=== PATIENT | female | born 1980 | race Caucasian/White ===

== ENCOUNTER 2018-04-25 07:40 | Emergency (ER) | payer SELFPAY ==
--- NOTE | 2018-04-25 08:26 | ER ---
Nurse's Notes [facility] Name: Jade Garcia Age: 37 yrs Sex: Female : 1980 Arrival Date: 04/25/2018 Time: 07:44 Bed 18 Private MD: None, None Diagnosis: Acute pain, not elsewhere classified-right oblique muscle tear;Essential (primary) hypertension Presentation: 04/25 07:57 Presenting complaint: Patient states: from my right hip bone down to my vaginal it tw2 hurts, feels like something is pulling inside there, and these red dotes showed up last night but i have been coughing, i can hardly take a deep breathe. Transition of care: patient was not received from another setting of care. Onset of symptoms was April 25, 2018. Risk Assessment: Do you want to hurt yourself or someone else? Patient reports no desire to harm self or others. Initial Sepsis Screen: Does the patient meet any 2 criteria? No. Patient's initial sepsis screen is negative. Does the patient have a suspected source of infection? No. Patient's initial sepsis screen is negative. Care prior to arrival: None. 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 - Social history:: Smoking status: . - Ebola Screening: : Patient denies travel to an Ebola-affected area in the 21 days before illness onset. - Family history:: not pertinent. Screenin:23 Abuse screen: Denies threats or abuse. Nutritional screening: No deficits noted. tw2 Tuberculosis screening: No symptoms or risk factors identified. Fall Risk None identified. Assessment: 08:24 General: Appears in no apparent distress. Behavior is calm, cooperative, appropriate tw2 for age. Pain: Complains of pain in right lower quadrant and anterior aspect of right lateral abdomen. Neuro: Level of Consciousness is awake, alert, obeys commands, Oriented to person, place, time, situation. Cardiovascular: Heart tones S1 S2 Patient's skin is warm and dry. Respiratory: Airway is patent Respiratory effort is even, unlabored, Respiratory pattern is regular, symmetrical, Breath sounds are clear bilaterally. GI: Bowel sounds present X 4 quads. Abd is soft X 4 quads Abdomen is tender to palpation in right lower quadrant. : No signs and/or symptoms were reported regarding the genitourinary system. Denies burning with urination, urinary frequency. EENT: No signs and/or symptoms were reported regarding the EENT system. Derm: petechia noted to right lower abdomen. Musculoskeletal: Reports pain in right lower quadrant and anterior aspect of right lateral abdomen. 08:32 Reassessment: Patient appears in no apparent distress at this time. No changes from tw2 previously documented assessment. Patient and/or family updated on plan of care and expected duration. Pain level reassessed. Patient is alert, oriented x 3, equal unlabored respirations, skin warm/dry/pink. Vital Signs: 07:58 BP 158 / 133; Pulse 114; Resp 18; Temp 98.3(O); Pulse Ox 99% on R/A; Pain 10/10; tw2 08:20 BP 146 / 99; Pulse 90; Resp 18; Pulse Ox 99% on R/A; tw2 ED Course: 07:44 Patient arrived in ED. mr 07:44 None, None is Private Physician. mr 07:53 Bed in low position. Call light in reach. tw2 07:55 Tarun Ortiz MD is Attending Physician. [facility] 07:57 Maria C Tolbert, URI is Primary Nurse. tw2 07:58 Triage completed. tw2 08:25 Arm band placed on. tw2 08:25 No provider procedures requiring assistance completed. tw2 08:32 Patient did not have IV access during this emergency room visit. tw2 Administered Medications: 08:23 Drug: Lisinopril 20 mg Route: PO; tw2 08:31 Follow up: Response: No adverse reaction tw2 08:23 Drug: Motrin 400 mg Route: PO; tw2 08:31 Follow up: Response: No adverse reaction tw2 Outcome: 08:25 Discharge ordered by . lo 08:31 Discharged to home ambulatory. tw2 08:31 Condition: stable 08:31 Discharge instructions given to patient, Instructed on discharge instructions, follow up and referral plans. no drinking with medication, no driving heavy equipment, medication usage, Demonstrated understanding of instructions, follow-up care, medications, Prescriptions given X 3. 08:32 Patient left the ED. tw2 Signatures: Tarun Ortiz MD MD cha Rivera, Lisa Moise RN RN iw Maria C Tolbert RN RN tw2 Corrections: (The following items were deleted from the chart) 08:23 08:20 BP 148 / 99; iw tw 08:26 08:20 BP 146 / 99; tw2 tw2
--- NOTE | 2018-04-25 08:26 | EDPHYS ---
Physician Documentation [facility] Name: Jade Garcia Age: 37 yrs Sex: Female : 1980 Arrival Date: 04/25/2018 Time: 07:44 Bed 18 Private MD: None, None ED Physician Tarun Ortiz HPI: 04/25 08:18 This 37 yrs old Female presents to ER via Ambulatory with complaints of lo Abdominal Pain, Pelvic Pain. 08:18 The patient presents with abdominal pain in the lower abdomen. Onset: The lo symptoms/episode began/occurred 2 day(s) ago. The patient complains of pain in the right low back. The pain does not radiate. Onset: The symptoms/episode began/occurred 2 day(s) ago. The patient presents with pain that is acute, coughing. 08:18 Modifying factors: The symptoms are alleviated by remaining still, the symptoms are lo aggravated by movement, palpation/percussion. The symptoms are located in the right superior iliac crest. Onset: The symptoms/episode began/occurred 2 day(s) ago. 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 - Social history:: Smoking status: . - Ebola Screening: : Patient denies travel to an Ebola-affected area in the 21 days before illness onset. - Family history:: not pertinent. ROS: 08:18 Constitutional: Negative for fever, chills, and weight loss, Eyes: Negative for injury, lo pain, redness, and discharge, ENT: Negative for injury, pain, and discharge, Neck: Negative for injury, pain, and swelling, Cardiovascular: Negative for chest pain, palpitations, and edema, Respiratory: Negative for shortness of breath, cough, wheezing, and pleuritic chest pain, Back: Negative for injury and pain, : Negative for injury, bleeding, discharge, and swelling, MS/Extremity: Negative for injury and deformity, Skin: Negative for injury, rash, and discoloration, Neuro: Negative for headache, weakness, numbness, tingling, and seizure, Psych: Negative for depression, anxiety, suicide ideation, homicidal ideation, and hallucinations, Allergy/Immunology: Negative for hives, rash, and allergies, Endocrine: Negative for neck swelling, polydipsia, polyuria, polyphagia, and marked weight changes, Hematologic/Lymphatic: Negative for swollen nodes, abnormal bleeding, and unusual bruising. 08:18 Abdomen/GI: Positive for abdominal pain, of the anterior aspect of right lateral abdomen and right lower quadrant. Exam: 08:18 Constitutional: This is a well developed, well nourished patient who is awake, alert, lo and in no acute distress. Head/Face: Normocephalic, atraumatic. Eyes: Pupils equal round and reactive to light, extra-ocular motions intact. Lids and lashes normal. Conjunctiva and sclera are non-icteric and not injected. Cornea within normal limits. Periorbital areas with no swelling, redness, or edema. ENT: Nares patent. No nasal discharge, no septal abnormalities noted. Tympanic membranes are normal and external auditory canals are clear. Oropharynx with no redness, swelling, or masses, exudates, or evidence of obstruction, uvula midline. Mucous membranes moist. Neck: Trachea midline, no thyromegaly or masses palpated, and no cervical lymphadenopathy. Supple, full range of motion without nuchal rigidity, or vertebral point tenderness. No Meningismus. Chest/axilla: Normal chest wall appearance and motion. Nontender with no deformity. No lesions are appreciated. Cardiovascular: Regular rate and rhythm with a normal S1 and S2. No gallops, murmurs, or rubs. Normal PMI, no JVD. No pulse deficits. Respiratory: Lungs have equal breath sounds bilaterally, clear to auscultation and percussion. No rales, rhonchi or wheezes noted. No increased work of breathing, no retractions or nasal flaring. Back: No spinal tenderness. No costovertebral tenderness. Full range of motion. Skin: Warm, dry with normal turgor. Normal color with no rashes, no lesions, and no evidence of cellulitis. MS/ Extremity: Pulses equal, no cyanosis. Neurovascular intact. Full, normal range of motion. Neuro: Awake and alert, GCS 15, oriented to person, place, time, and situation. Cranial nerves II-XII grossly intact. Motor strength 5/5 in all extremities. Sensory grossly intact. Cerebellar exam normal. Normal gait. Psych: Awake, alert, with orientation to person, place and time. Behavior, mood, and affect are within normal limits. 08:18 Abdomen/GI: Inspection: abdomen appears normal, Bowel sounds: normal, Palpation: abdomen is soft and non-tender, Liver: no appreciated palpable abnormalities, Hernia: not appreciated. Vital Signs: 07:58 BP 158 / 133; Pulse 114; Resp 18; Temp 98.3(O); Pulse Ox 99% on R/A; Pain 10/10; tw2 08:20 BP 146 / 99; Pulse 90; Resp 18; Pulse Ox 99% on R/A; tw2 MDM: 07:55 Patient medically screened. lo 12 08:10 Order name: Urine Dipstick--Ancillary (enter results) bd 04/25 08:10 Order name: Urine --Ancillary (enter results) bd Administered Medications: 08:23 Drug: Lisinopril 20 mg Route: PO; tw2 08:31 Follow up: Response: No adverse reaction tw2 08:23 Drug: Motrin 400 mg Route: PO; tw2 08:31 Follow up: Response: No adverse reaction tw2 Disposition: 04/25/18 08:25 Discharged to Home. Impression: Acute pain, not elsewhere classified - right oblique muscle tear, Essential (primary) hypertension. - Condition is Stable. - Discharge Instructions: Hypertension, Muscle Strain, Muscle Pain, Adult, Hypertension, [id number], Cough, Adult, [id number], Muscle Strain, [id number], Cough, Adult. - Prescriptions for gabapentin 300 mg Oral capsule - take 2 capsule by ORAL route 3 times per day; 60 capsule. Tylenol- Codeine #3 300-30 mg Oral Tablet - take 2 tablet by ORAL route every 6 hours As needed; 30 tablet. Lisinopril 20 mg Oral Tablet - take 1 tablet by ORAL route once daily; 20 tablet. - Medication Reconciliation Form, Thank You Letter, Antibiotic Education, Prescription Opioid Use form. - Follow up: Private Physician; When: 2 - 3 days; Reason: Recheck today's complaints, Continuance of care, Re-evaluation by your physician. - Problem is new. - Symptoms have improved. Signatures: Dispatcher [employer] EDTarun Cerda MD MD cha Wise, Tara RN RN tw2 Corrections: (The following items were deleted from the chart) 08:32 08:25 04/25/2018 08:25 Discharged to Home. Impression: Acute pain, not elsewhere tw2 classified - right oblique muscle tear; Essential (primary) hypertension. Condition is Stable. Forms are Medication Reconciliation Form, Thank You Letter, Antibiotic Education, Prescription Opioid Use. Follow up: Private Physician; When: 2 - 3 days; Reason: Recheck today's complaints, Continuance of care, Re-evaluation by your physician. Problem is new. Symptoms have improved. lo
[2018-04-25] MEDS ORDERED: LISINOPRIL 20 MG TAB ONE (08:29)
[2018-04-25] MEDS ORDERED: IBUPROFEN 400 MG TAB ONE (08:29)
[2018-04-25 08:44] VITALS: TEMP 98.3; O2SAT 99
[2018-04-25 08:46] VITALS: BP 146/99
[2018-04-25 08:46] LABS: Urine Blood TRACE (NEG); Urine Glucose NEGATIVE (NEG); Urine Protein NEGATIVE (NEG)
== END 2018-04-25 08:32 | disposition home or self-care (01) ==
LOC: ER 07:40
DX: S39.011A Strain of muscle, fascia and tendon of abdomen, initial encounter (principal); I10 Essential (primary) hypertension; F20.9 Schizophrenia, unspecified; Z88.3 Allergy status to other anti-infective agents
CPT/HCPCS: 81003; 81025; 99283

== ENCOUNTER 2018-05-03 08:07 | Emergency (ER) | payer SELFPAY ==
[2018-05-03] MEDS ORDERED: IPRATROPIUM BROM 0.5MG/2.5ML ONE (08:48)
[2018-05-03] MEDS ORDERED: ALBUTEROL 2.5 MG/3 ML NEB SOL ONE (08:48)
[2018-05-03 09:00] LABS: Absolute Lymphocytes (CBC) 1.6 K/uL (0.7-4.9); Absolute Monocytes 0.7 K/uL (0.1-1.3); Basophils % 0.7 % (0-1.3); Eosinophils % 2.6 % (0-4.4); Hematocrit 39.8 % (36.0-45.0); Lymphocytes % 12.7 % (15.3-44.8); MCH 31.3 pg (27.0-35.0); MPV 8.8 fL (7.6-11.3); Monocytes % 5.3 % (3.3-12.3); RBC Red Blood Cell Count 4.33 M/uL (3.86-4.86)
[2018-05-03 09:16] LABS: Potassium 3.8 mmol/L (3.5-5.1)
[2018-05-03 09:48] LABS: Urine Blood NEGATIVE (NEG); Urine Glucose NEGATIVE (NEG); Urine Protein NEGATIVE (NEG); Urine pH 7.5 (5.0-7.0)
--- NOTE | 2018-05-03 10:02 | RAD REPORT ---
EXAM DESCRIPTION: CT - Abdomen Pelvis W Contrast - 05/03/2018 9:38 am CLINICAL HISTORY: Abdominal pain with vomiting COMPARISON: October 2016 TECHNIQUE: Computed axial tomography of the abdomen pelvis was obtained. 100 cc Isovue-300 was admin istered intravenously. Oral contrast was not requested which limits evaluation of bowel. All CT scans are performed using dose optimization technique as appropriate and may include automated exposure control or mA/KV adjustment according to patient size. FINDINGS: Small left pleural effusion An 8 x 4 centimeter heterogeneous structure is present within the musculature of the right lateral ab dominal wall above the level of the iliac crest. Stranding is present within the adjacent subcutaneou s tissues. The liver, spleen, pancreas, adrenal and kidneys appear unremarkable. 1 centimeter left renal cyst There is no evidence of diverticulitis. The appendix is normal. IMPRESSION: 8 x 4 centimeter heterogeneous structure within the musculature of the right lateral wa ll above the level of the iliac crest probably represents a subacute hematoma. Myositis can also have this appearance and should be correlated clinically. .
--- NOTE | 2018-05-03 10:12 | EDPHYS ---
Physician Documentation [facility] Name: Jade Garcia Age: 37 yrs Sex: Female : 1980 Arrival Date: 05/03/2018 Time: 08:10 Bed 23 Private MD: None, None ED Physician Yoav Ivan HPI: 05/03 09:43 This 37 yrs old Female presents to ER via Ambulatory with complaints of kb Abdominal Pain. 09:43 The patient presents with abdominal pain in the lower abdomen. Onset: The kb symptoms/episode began/occurred last month, and became worse. The symptoms do not radiate. Associated signs and symptoms: none. The symptoms are described as constant. Modifying factors: The symptoms are alleviated by nothing, the symptoms are aggravated by pressure. Severity of pain: At its worst the pain was moderate in the emergency department the pain is unchanged. The patient has experienced a previous episode, last month. The patient has been recently seen at the [facility] Emergency Department, last month. 09:45 Pt reports she was seen for same pain last month and was diagnosed with a muscle tear, kb but the pain has gotten worse. Had bruising to right lateral abd last since last month, almost resolved. Now has bruising around umbilicus. 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 - Social history:: Smoking status: Patient uses tobacco products, denies chronic smoking, but will smoke occasionally. - Ebola Screening: : No symptoms or risks identified at this time. ROS: 09:43 Constitutional: Negative for fever, chills, and weight loss, ENT: Negative for injury, kb pain, and discharge, Neck: Negative for injury, pain, and swelling, Cardiovascular: Negative for chest pain, palpitations, and edema, Respiratory: Negative for shortness of breath, cough, wheezing, and pleuritic chest pain, Back: Negative for injury and pain, : Negative for injury, bleeding, discharge, and swelling, MS/Extremity: Negative for injury and deformity, Neuro: Negative for headache, weakness, numbness, tingling, and seizure. 09:43 Abdomen/GI: Positive for abdominal pain. 09:43 Skin: Positive for ecchymosis, of the umbilical area and anterior aspect of right lateral abdomen. Exam: 09:43 Constitutional: This is a well developed, well nourished patient who is awake, alert, kb and in no acute distress. Head/Face: Normocephalic, atraumatic. Chest/axilla: Normal chest wall appearance and motion. Nontender with no deformity. No lesions are appreciated. Cardiovascular: Regular rate and rhythm with a normal S1 and S2. No gallops, murmurs, or rubs. Normal PMI, no JVD. No pulse deficits. Respiratory: Lungs have equal breath sounds bilaterally, clear to auscultation and percussion. No rales, rhonchi or wheezes noted. No increased work of breathing, no retractions or nasal flaring. Back: No spinal tenderness. No costovertebral tenderness. Full range of motion. Skin: Warm, dry with normal turgor. Normal color with no rashes, no lesions, and no evidence of cellulitis. MS/ Extremity: Pulses equal, no cyanosis. Neurovascular intact. Full, normal range of motion. Neuro: Awake and alert, GCS 15, oriented to person, place, time, and situation. Cranial nerves II-XII grossly intact. Motor strength 5/5 in all extremities. Sensory grossly intact. Cerebellar exam normal. Normal gait. 09:43 Abdomen/GI: Inspection: bruising, umbilical area and anterior aspect of right lateral abdomen, Bowel sounds: normal, Palpation: soft, in all quadrants, mild abdominal tenderness, in the right lower quadrant and left lower quadrant. Vital Signs: 08:27 BP 146 / 97; Pulse 90; Resp 18; Temp 97.3; Pulse Ox 98% on R/A; Weight 74.84 kg; Height ph 5 ft. 3 in. (160.02 cm); Pain 10/10; 09:25 BP 149 / 92; Pulse 88; Resp 18; Pulse Ox 96% on R/A; rb1 09:35 rb1 10:16 BP 138 / 81; Pulse 84; Resp 17; Pulse Ox 96% on R/A; rb1 08:27 Body Mass Index 29.23 (74.84 kg, 160.02 cm) ph 09:[address] rb1 MDM: 08:18 Patient medically screened. kb 09:45 Data reviewed: vital signs, nurses notes. Data interpreted: Pulse oximetry: on room air kb is 98 %. Interpretation: normal. 10:10 Counseling: I had a detailed discussion with the patient and/or guardian regarding: the kb historical points, exam findings, and any diagnostic results supporting the discharge/admit diagnosis, lab results, radiology results, the need for outpatient follow up, a family practitioner, to return to the emergency department if symptoms worsen or persist or if there are any questions or concerns that arise at home. ED course: History compatible with subacute hematoma. . 05/03 08:29 Order name: CBC with Diff; Complete Time: 09:02 kb 05/03 08:29 Order name: Basic Metabolic Panel; Complete Time: 09:17 kb 05/03 09:18 Order name: CT Abd/Pelvis - W/Contrast; Complete Time: 10:04 kb 05/03 09:37 Order name: Urine Dipstick--Ancillary (enter results); Complete Time: 09:49 eb 05/03 09:37 Order name: Urine --Ancillary (enter results); Complete Time: 09:49 eb 05/03 08:29 Order name: IV Saline Lock; Complete Time: 09:28 kb 05/03 08:29 Order name: Labs collected and sent; Complete Time: 09:28 kb 05/03 09:18 Order name: Urine Test (obtain specimen); Complete Time: 09:35 kb 05/03 09:18 Order name: Urine Dipstick-Ancillary (obtain specimen); Complete Time: 09:36 kb Administered Medications: 08:43 Drug: DuoNeb (3:1) (2.5 mg - 0.5 mg) 3 ml Route: Nebulizer; rb1 09:10 Follow up: Response: No adverse reaction; Marked relief of symptoms rb1 10:15 Drug: Doxycycline 100 mg Route: PO; rb1 10:24 Follow up: Response: Medication administered at discharge. rb1 Disposition: 10:27 Co-signature as Attending Physician, Yoav Ivan MD. rn Disposition: 05/03/18 10:12 Discharged to Home. Impression: Subacute hematoma of abdominal wall. - Condition is Stable. - Discharge Instructions: Hematoma, [id number]. - Prescriptions for Doxycycline Hyclate 100 mg Oral Tablet - take 1 tablet by ORAL route every 12 hours for 7 days; 14 tablet. Tramadol 50 mg Oral Tablet - take 1 tablet by ORAL route every 8 hours as needed; 12 tablet. - Medication Reconciliation Form, Thank You Letter, Antibiotic Education, Prescription Opioid Use form. - Follow up: Emergency Department; When: As needed; Reason: Worsening of condition. Follow up: Private Physician; When: 2 - 3 days; Reason: Recheck today's complaints, Continuance of care, Re-evaluation by your physician. Signatures: Dispatcher [employer] EDMS Paula Hale, ROUNDING MACHINE OPERATOR-C ROUNDING MACHINE OPERATOR-Yoav Kay MD MD rn Mellisa Mcdowell RN RN Kathryn Rabago RN RN rb1 Corrections: (The following items were deleted from the chart) 10:22 10:12 05/03/2018 10:12 Discharged to Home. Impression: Subacute hematoma of abdominal rb1 wall. Condition is Stable. Forms are Medication Reconciliation Form, Thank You Letter, Antibiotic Education, Prescription Opioid Use. Follow up: Emergency Department; When: As needed; Reason: Worsening of condition. Follow up: Private Physician; When: 2 - 3 days; Reason: Recheck today's complaints, Continuance of care, Re-evaluation by your physician. kb
--- NOTE | 2018-05-03 10:12 | ER ---
Nurse's Notes [facility] Name: Jade Garcia Age: 37 yrs Sex: Female : 1980 Arrival Date: 05/03/2018 Time: 08:10 Bed 23 Private MD: None, None Diagnosis: Subacute hematoma of abdominal wall Presentation: 05/03 08:24 Presenting complaint: Patient states: " I had bronchitis about a week ago and I started ph having stomach pain and thought that it was a pulled muscle or something but the p[pain has gotten worse and now it's moved to anther area of my stomach." Pt reports pain in RLQ and umbilical area, bruising noted to umbilical area, pt also reports nausea, denies V/D or fever. Transition of care: patient was not received from another setting of care. Onset of symptoms was May 03, 2018. Risk Assessment: Do you want to hurt yourself or someone else? Patient reports no desire to harm self or others. Initial Sepsis Screen: Does the patient meet any 2 criteria? No. Patient's initial sepsis screen is negative. Does the patient have a suspected source of infection? No. Patient's initial sepsis screen is negative. Care prior to arrival: None. 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 - Social history:: Smoking status: Patient uses tobacco products, denies chronic smoking, but will smoke occasionally. - Ebola Screening: : No symptoms or risks identified at this time. Screenin:28 Abuse screen: Denies threats or abuse. Denies injuries from another. Nutritional ph screening: No deficits noted. Tuberculosis screening: No symptoms or risk factors identified. Fall Risk None identified. Assessment: 08:25 General: Appears uncomfortable, Behavior is calm, cooperative, Denies fever. Pain: rb1 Complains of pain in right lower quadrant and umbilical Pain currently is 10 out of 10 on a pain scale. Pain began bruising around umbilical area x 3 days. Neuro: Level of Consciousness is awake, alert, obeys commands, Oriented to person, place, time, situation. Cardiovascular: Capillary refill < 3 seconds is brisk in bilateral fingers. Respiratory: Reports cough that is Airway is patent Respiratory effort is even, unlabored, Respiratory pattern is regular, symmetrical. GI: Bowel sounds present X 4 quads. Abd is soft Abdomen is tender to palpation in umbilical area and right lower quadrant Reports nausea. : No signs and/or symptoms were reported regarding the genitourinary system. Derm: Bruising that is dark purple, brown, yellow, on umbilical area. 09:25 Reassessment: Patient appears in no apparent distress at this time. Patient and/or rb1 family updated on plan of care and expected duration. Pain level reassessed. Patient is alert, oriented x 3, equal unlabored respirations, skin warm/dry/pink. 09:36 Reassessment: Pt. went to CT. rb1 10:15 Reassessment: Patient appears in no apparent distress at this time. No changes from rb1 previously documented assessment. Patient is alert, oriented x 3, equal unlabored respirations, skin warm/dry/pink. Vital Signs: 08:27 BP 146 / 97; Pulse 90; Resp 18; Temp 97.3; Pulse Ox 98% on R/A; Weight 74.84 kg; Height ph 5 ft. 3 in. (160.02 cm); Pain 10/10; 09:25 BP 149 / 92; Pulse 88; Resp 18; Pulse Ox 96% on R/A; rb1 09:35 rb1 10:16 BP 138 / 81; Pulse 84; Resp 17; Pulse Ox 96% on R/A; rb1 08:27 Body Mass Index 29.23 (74.84 kg, 160.02 cm) ph 09:[address] [facility] ED Course: 08:10 Patient arrived in ED. sb2 08:10 None, None is Private Physician. sb2 08:18 [facility]C [facility] kb 08:18 Yoav Ivan MD is Attending Physician. kb 08:27 Triage completed. ph 08:28 Arm band placed on Patient placed in an exam room, on a stretcher. ph 08:28 Patient has correct armband on for positive identification. Placed in gown. Bed in low ph position. Call light in reach. Side rails up X 1. Pulse ox on. NIBP on. Warm blanket given. 08:33 Kathryn Varela, RN is Primary Nurse. rb1 08:50 Initial lab(s) drawn, by me, sent to lab. Inserted saline lock: 20 gauge in right ph antecubital area, using aseptic technique. Blood collected. 09:35 CT completed. Patient tolerated procedure well. Patient moved to CT via stretcher. sj Patient moved back from CT. 09:40 CT Abd/Pelvis - W/Contrast In Process Unspecified. EDMS 10:22 IV discontinued, intact, bleeding controlled, No redness/swelling at site. Pressure rb1 dressing applied. 10:22 No provider procedures requiring assistance completed. rb1 Administered Medications: 08:43 Drug: DuoNeb (3:1) (2.5 mg - 0.5 mg) 3 ml Route: Nebulizer; rb1 09:10 Follow up: Response: No adverse reaction; Marked relief of symptoms rb1 10:15 Drug: Doxycycline 100 mg Route: PO; rb1 10:24 Follow up: Response: Medication administered at discharge. rb1 Outcome: 10:12 Discharge ordered by . kb 10:22 Patient left the ED. rb1 10:22 Discharged to home ambulatory. rb1 10:22 Condition: stable 10:22 Discharge instructions given to patient, Instructed on discharge instructions, follow up and referral plans. medication usage, Demonstrated understanding of instructions, follow-up care, medications, Prescriptions given X 2. Signatures: Dispatcher [employer] EDNJ Paula Hale, PORCELAIN ENAMELERRahul CHRISTENSENP-Mary Richards Patricia, RN RN Kathryn Varela, URI RN [facility] Madyson Jordan sb2 Corrections: (The following items were deleted from the chart) 10:28 10:24 No provider procedures requiring assistance completed. rb1 rb1
[2018-05-03] MEDS ORDERED: DOXYCYCLINE 100 MG CAP PO ONE (10:22)
[2018-05-03 10:40] VITALS: TEMP 97.3
[2018-05-03 10:41] VITALS: O2SAT 96
[2018-05-03 10:42] VITALS: BP 138/81
== END 2018-05-03 10:22 | disposition home or self-care (01) ==
LOC: ER 08:07
DX: S30.1XXA Contusion of abdominal wall, initial encounter (principal); I10 Essential (primary) hypertension; Z72.0 Tobacco use; Z88.3 Allergy status to other anti-infective agents
CPT/HCPCS: 36415; 74177; 80048; 81003; 81025; 85025; 94640; 99285; Q9967

== ENCOUNTER 2018-05-15 12:03 | Emergency (ER) | payer SELFPAY ==
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
[2018-05-15] MEDS ORDERED: LORAZEPAM 1 MG TABLET ONE (14:26)
== END 2018-05-15 14:21 | disposition home or self-care (01) ==
LOC: ER 12:03
DX: F41.8 Other specified anxiety disorders (principal); F17.210 Nicotine dependence, cigarettes, uncomplicated
CPT/HCPCS: 99283

== ENCOUNTER 2018-06-22 08:24 | Emergency (ER) | payer SELFPAY ==
--- NOTE | 2018-06-22 10:05 | EDPHYS ---
Physician Documentation [facility] Name: Jade Garcia Age: 37 yrs Sex: Female : 1980 Arrival Date: 06/22/2018 Time: 08:29 Bed 13 Private MD: None, None ED Physician Maximo Desai HPI: 06/22 10:01 This 37 yrs old Female presents to ER via Ambulatory with complaints of ma2 Anxiety. 10:01 Onset: The symptoms/episode began/occurred gradually, 2 day(s) ago. Severity of ma2 symptoms: At their worst the symptoms were moderate in the emergency department the symptoms are unchanged. The patient has not experienced similar symptoms in the past, The patient has experienced similar episodes in the past. Historical: - Allergies: 08:58 Erythromycin; ss - PMHx: 08:58 Hypertension; Schizophrenia; Anxiety; ss - PSHx: 08:58 D\\T\\C; ss - Immunization history:: Adult Immunizations up to date. - Social history:: Smoking status: Patient uses tobacco products, "I vape", Patient/guardian denies using alcohol, street drugs, The patient lives with family. - Ebola Screening: : Patient denies exposure to infectious person Patient denies travel to an Ebola-affected area in the 21 days before illness onset. - Family history:: not pertinent. ROS: 10:01 Constitutional: Negative for fever, chills, and weight loss, Cardiovascular: Negative ma2 for chest pain, palpitations, and edema, Abdomen/GI: Negative for abdominal pain, nausea, diarrhea, and constipation. 10:01 Psych: Positive for anxiety, Negative for depression, alcohol dependence, auditory hallucinations, homicidal ideation. 10:01 All other systems are negative. Exam: 10:01 Constitutional: This is a well developed, well nourished patient who is awake, alert, ma2 and in no acute distress. Chest/axilla: Normal chest wall appearance and motion. Nontender with no deformity. No lesions are appreciated. Cardiovascular: Regular rate and rhythm with a normal S1 and S2. No gallops, murmurs, or rubs. Normal PMI, no JVD. No pulse deficits. Respiratory: Lungs have equal breath sounds bilaterally, clear to auscultation and percussion. No rales, rhonchi or wheezes noted. No increased work of breathing, no retractions or nasal flaring. Abdomen/GI: Soft, non-tender, with normal bowel sounds. No distension or tympany. No guarding or rebound. No evidence of tenderness throughout. 10:01 Psych: anxiety. Vital Signs: 08:58 BP 125 / 85; Pulse 94; Resp 16; Temp 99.7; Pulse Ox 97% ; Weight 74.84 kg; Height 5 ft. ss 3 in. (160.02 cm); Pain 0/10; 10:27 BP 124 / 69; Pulse 87; Resp 19; Pulse Ox 99% on R/A; aj 08:58 Body Mass Index 29.23 (74.84 kg, 160.02 cm) ss MDM: 09:41 Patient medically screened. ma2 10:01 Differential Diagnosis anxiety. Data reviewed: vital signs, nurses notes. Counseling: I ma2 had a detailed discussion with the patient and/or guardian regarding: the historical points, exam findings, and any diagnostic results supporting the discharge/admit diagnosis, the presence of at least one elevated blood pressure reading (>120/80) during this emergency department visit, the need for outpatient follow up. Response to treatment: the patient's symptoms have resolved after treatment. Administered Medications: 10:13 Drug: Ativan 0.5 mg Route: PO; aj 10:29 Follow up: Response: Anxiety decreased aj Disposition: 06/22/18 10:05 Discharged to Home. Impression: Anxiety disorder, unspecified. - Condition is Stable. - Discharge Instructions: Panic Attacks. - Prescriptions for Ativan 0.5 mg Oral Tablet - take 1 tablet by ORAL route every 8 hours As needed; 20 tablet. - Medication Reconciliation Form, Thank You Letter, Antibiotic Education, Prescription Opioid Use form. - Follow up: Private Physician; When: Tomorrow; Reason: Continuance of care. Signatures: Dalia Fitzgerald RN RN aj Smirch, Shelby, RN RN ss Alzahri, Mohammad, MD MD ma2 Corrections: (The following items were deleted from the chart) 10:29 10:05 06/22/2018 10:05 Discharged to Home. Impression: Anxiety disorder, unspecified. aj Condition is Stable. Forms are Medication Reconciliation Form, Thank You Letter, Antibiotic Education, Prescription Opioid Use. Follow up: Private Physician; When: Tomorrow; Reason: Continuance of care. ma2
--- NOTE | 2018-06-22 10:05 | ER ---
Nurse's Notes [facility] Name: Jade Garcia Age: 37 yrs Sex: Female : 1980 Arrival Date: 06/22/2018 Time: 08:29 Bed 13 Private MD: None, None Diagnosis: Anxiety disorder, unspecified Presentation: 06/22 08:56 Presenting complaint: Patient states: "I woke up this morning feeling shaking, anxious ss and short of breath, like I panic attack. I think it's a panic attack?". Transition of care: patient was not received from another setting of care. Onset of symptoms was June 22, 2018. Risk Assessment: Do you want to hurt yourself or someone else? Patient reports no desire to harm self or others. Initial Sepsis Screen: Does the patient meet any 2 criteria? No. Patient's initial sepsis screen is negative. Does the patient have a suspected source of infection? No. Patient's initial sepsis screen is negative. Note "I feel like I've drank two pots of coffee, but I haven't". Care prior to arrival: None. 08:56 Method Of Arrival: Ambulatory ss 08:56 Acuity: JAMES 4 ss Historical: - Allergies: 08:58 Erythromycin; ss - PMHx: 08:58 Hypertension; Schizophrenia; Anxiety; ss - PSHx: 08:58 D\\T\\C; ss - Immunization history:: Adult Immunizations up to date. - Social history:: Smoking status: Patient uses tobacco products, "I vape", Patient/guardian denies using alcohol, street drugs, The patient lives with family. - Ebola Screening: : Patient denies exposure to infectious person Patient denies travel to an Ebola-affected area in the 21 days before illness onset. - Family history:: not pertinent. Screenin:45 Abuse screen: Denies threats or abuse. Denies injuries from another. Nutritional ss screening: No deficits noted. Tuberculosis screening: Never had TB. Fall Risk None identified. Assessment: 09:45 General: Appears comfortable, Behavior is cooperative, anxious, quiet, Reports "I just ss feel shaky all over like I just drank two pots of coffee. This started this morning when I woke up." Denies fever, feeling ill, fatigue, chills. Pain: Denies pain. 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 Full function Speech is normal. Cardiovascular: Heart tones S1 S2 present Capillary refill < 3 seconds is brisk in bilateral fingers Patient's skin is warm and dry. Respiratory: Reports "I felt like I couldn't get a good breath." Airway is patent Trachea midline Respiratory effort is even, unlabored, Respiratory pattern is regular, symmetrical. GI: Patient currently denies diarrhea, nausea, vomiting. : No signs and/or symptoms were reported regarding the genitourinary system. EENT: Poor dentition noted. Derm: Skin is intact, is healthy with good turgor, Skin is dry, Skin is pink, warm \\T\\ dry. normal. Musculoskeletal: Circulation, motion, and sensation intact. Range of motion: Swelling absent. Vital Signs: 08:58 BP 125 / 85; Pulse 94; Resp 16; Temp 99.7; Pulse Ox 97% ; Weight 74.84 kg; Height 5 ft. ss 3 in. (160.02 cm); Pain 0/10; 10:27 BP 124 / 69; Pulse 87; Resp 19; Pulse Ox 99% on R/A; aj 08:58 Body Mass Index 29.23 (74.84 kg, 160.02 cm) ED Course: 08:29 Patient arrived in ED. sb2 08:29 None, None is Private Physician. sb2 08:58 Triage completed. ss 09:01 Arm band placed on. ss 09:41 Maximo Desai MD is Attending Physician. ma2 09:45 Patient has correct armband on for positive identification. Bed in low position. Call light in reach. 09:45 Patient maintains SpO2 saturation greater than 95% on room air. ss 10:05 Dalia Fitzgerald, URI is Primary Nurse. aj 10:27 No provider procedures requiring assistance completed. Patient did not have IV access aj during this emergency room visit. Administered Medications: 10:13 Drug: Ativan 0.5 mg Route: PO; aj 10:29 Follow up: Response: Anxiety decreased aj Outcome: 10:05 Discharge ordered by . ma2 10:27 Discharged to home ambulatory. aj 10:27 Condition: good 10:27 Discharge instructions given to patient, Instructed on discharge instructions, follow up and referral plans. medication usage, Demonstrated understanding of instructions, follow-up care, medications, Prescriptions given X 1. 10:29 Patient left the ED. aj Signatures: Dalia Fitzgerald RN RN aj Smirch, Shelby, RN RN ss Alzahri, Mohammad, MD MD ga2 Madyson Jordan 2
[2018-06-22] MEDS ORDERED: LORAZEPAM 0.5 MG TABLET ONE (10:20)
[2018-06-22 10:36] VITALS: TEMP 99.7
[2018-06-22 10:37] VITALS: BP 124/69; O2SAT 99
== END 2018-06-22 10:29 | disposition home or self-care (01) ==
LOC: ER 08:24
DX: F41.9 Anxiety disorder, unspecified (principal); Z88.1 Allergy status to other antibiotic agents; I10 Essential (primary) hypertension; F20.9 Schizophrenia, unspecified; F17.290 Nicotine dependence, other tobacco product, uncomplicated
CPT/HCPCS: 99284

== ENCOUNTER 2021-10-18 06:59 | Emergency (ER) | payer OTHER ==
[2021-10-18 07:43] LABS: Absolute Lymphocytes (CBC) 1.7 K/uL (0.7-4.9); Hematocrit 35.9 % (36.0-45.0); Lymphocytes % 11.8 % (15.3-44.8); MPV 6.8 fL (7.6-11.3); RBC Red Blood Cell Count 4.32 M/uL (3.86-4.86)
--- NOTE | 2021-10-18 08:13 | ER ---
Nurse's Notes [facility] Name: Jade Garcia Age: 41 yrs Sex: Female : 1980 Arrival Date: 10/18/2021 Time: 07:07 Bed 6 Private MD: Diagnosis: Small left frontal subdural, nondisplaced right occipital fracture Presentation: 10/18 07:07 Chief complaint: EMS states: pt was found outside on the sidewalk with AMS, laceration kd3 to the back of the head. c collar on, 20 g l AC. Coronavirus screen:. Coronavirus screen: unknown. AMS. Ebola Screen: No symptoms or risks identified at this time. Initial Sepsis Screen: Does the patient meet any 2 criteria? No. Patient's initial sepsis screen is negative. Does the patient have a suspected source of infection? No. Patient's initial sepsis screen is negative. Risk Assessment: Do you want to hurt yourself or someone else? Patient reports no desire to harm self or others. Onset of symptoms was October 18, 2021. 07:07 Method Of Arrival: EMS: [facility] kd3 07:07 Acuity: JAMES 3 kd3 Triage Assessment: 07:09 General: Appears in no apparent distress. Behavior is calm, cooperative. kd3 07:15 General: Appears in no apparent distress. comfortable, Behavior is calm, cooperative, bp appropriate for age. Pain: Unable to use pain scale. Does not appear to understand pain scale. EENT: No deficits noted. Neuro: Level of Consciousness is confused. Cardiovascular: No deficits noted. Respiratory: No deficits noted. GI: No signs and/or symptoms were reported involving the gastrointestinal system. : No signs and/or symptoms were reported regarding the genitourinary system. Derm: No deficits noted. Musculoskeletal: No deficits noted. Historical: - Allergies: 07:09 Erythromycin; kd3 - Home Meds: 09:09 BuSpar Oral 30 mg twice a day [Active]; Depo-Provera 150 mg/mL IM syrg 1 mL every 3 mo bp [Active]; Effexor Oral [Active]; gabapentin Oral [Active]; lisinopril Oral [Active]; Risperdal 3 mg Oral tab 1 tab 2 times per day [Active]; - PMHx: 07:09 Schizophrenia; Hypertension; Anxiety; kd3 - Immunization history:: Adult Immunizations up to date. - Social history:: Smoking status: unknown. Screenin:10 Abuse screen: Denies threats or abuse. Denies injuries from another. Nutritional kd3 screening: No deficits noted. Tuberculosis screening: No symptoms or risk factors identified. Fall Risk Fall in past 12 months (25 points). Assessment: 07:15 General: SEE TRIAGE NOTE. bp 08:05 Reassessment: PT RETURNED FROM CT. bp 08:34 Reassessment: MD AT B/S. PT CT HEAD GROSSLY ABNORMAL. bp 08:58 Reassessment:. bp 09:07 Reassessment: REPORT TO KATYA GREWAL AT [facility] ER. [facility] AT B/S FOR TRANSPORT. bp Vital Signs: 07:07 BP 145 / 82; Pulse 58; Resp 18; Temp 97.9; Pulse Ox 94% on R/A; Weight 68.04 kg; Height bp 5 ft. 3 in. (160.02 cm); 08:34 BP 144 / 88; Pulse 65; Resp 16; Pulse Ox 99% ; bp 09:07 BP 131 / 86; Pulse 75; Resp 16; Pulse Ox 97% ; bp 07:07 Body Mass Index 26.57 (68.04 kg, 160.02 cm) bp ED Course: 07:07 Patient arrived in ED. kd3 07:09 Triage completed. kd3 07:09 Arm band placed on left wrist. kd3 07:10 Patient has correct armband on for positive identification. Bed in low position. Call kd3 light in reach. Side rails up X 1. 07:10 Maintain EMS IV. Dressing intact. Good blood return noted. Site clean \T\ dry. Gauge \T\ kd 3 site: 20 g l AC . 07:14 Bryce Isaacs, URI is Primary Nurse. bp 07:15 No provider procedures requiring assistance completed. bp 07:17 Osmany Cherry MD is Attending Physician. kdr 07:56 CT Head C Spine In Process Unspecified. EDMS 09:08 Patient transferred, IV remains in place. bp Administered Medications: 08:40 Drug: Zofran (Ondansetron) 4 mg Route: IVP; Site: left antecubital; bp 09:00 Follow up: Response: No adverse reaction bp Medication: 07:15 VIS not applicable for this client. bp Outcome: 08:13 ER care complete, transfer ordered by . kdr 09:08 Transferred by helicopter to [facility], Transfer form completed. bp 09:08 Condition: stable 09:08 Instructed on the need for transfer. 09:12 Patient left the ED. bp Signatures: Dispatcher [employer] EDMS Osmany Cherry MD MD kdr Bryce Isaacs RN RN bp Aurora De Souza RN RN kd3 Corrections: (The following items were deleted from the chart) 09:10 07:07 BP 145 / 82; Pulse 58bpm; Resp 18bpm; Pulse Ox 94% RA; 68.04 kg; Height 5 ft. 3 bp in.; BMI: 26.5; kd3
--- NOTE | 2021-10-18 08:13 | EDPHYS ---
Physician Documentation [facility] Name: Jade Garcia Age: 41 yrs Sex: Female : 1980 Arrival Date: 10/18/2021 Time: 07:07 Bed 6 Private MD: ED Physician Osmany Cherry HPI: 10/18 09:03 This 41 yrs old Female presents to ER via EMS with complaints of Altered mental status. kdr 09:03 Patient was found down on a sidewalk. It is unknown how she ended up in that condition. kdr She was brought by EMS to the ED. She opens her eyes and responds to questions. Speech seems somewhat halting but otherwise she is able to respond appropriately to questions. Onset: The symptoms/episode began/occurred suddenly, just prior to arrival. Severity of symptoms: At their worst the symptoms were incapacitating in the emergency department the symptoms are unchanged. It is unknown whether or not the patient has had similar symptoms in the past. It is unknown whether or not the patient has recently seen a physician. Historical: - Allergies: 07:09 Erythromycin; kd3 - Home Meds: 09:09 BuSpar Oral 30 mg twice a day [Active]; Depo-Provera 150 mg/mL IM syrg 1 mL every 3 mo bp [Active]; Effexor Oral [Active]; gabapentin Oral [Active]; lisinopril Oral [Active]; Risperdal 3 mg Oral tab 1 tab 2 times per day [Active]; - PMHx: 07:09 Schizophrenia; Hypertension; Anxiety; kd3 - Immunization history:: Adult Immunizations up to date. - Social history:: Smoking status: unknown. ROS: 09:03 Constitutional: Patient is a poor historian and slow to answer questions kdr 09:03 Unable to obtain ROS due to altered mental status. Exam: 09:03 Constitutional: This is a well developed, well nourished patient who is awake, alert, kdr and in no acute distress. Head/Face: Normocephalic, as a abrasion to the left occiput. It was not visualized Vital Signs: 07:07 BP 145 / 82; Pulse 58; Resp 18; Temp 97.9; Pulse Ox 94% on R/A; Weight 68.04 kg; Height bp 5 ft. 3 in. (160.02 cm); 08:34 BP 144 / 88; Pulse 65; Resp 16; Pulse Ox 99% ; bp 09:07 BP 131 / 86; Pulse 75; Resp 16; Pulse Ox 97% ; bp 07:07 Body Mass Index 26.57 (68.04 kg, 160.02 cm) bp MDM: 08:13 Patient medically screened. kdr 09:10 Data reviewed: vital signs, nurses notes, lab test result(s), radiologic studies. kdr Counseling: I had a detailed discussion with the patient and/or guardian regarding: the historical points, exam findings, and any diagnostic results supporting the discharge/admit diagnosis, lab results, radiology results, the need to transfer to another facility. 10/18 07:19 Order name: Basic Metabolic Panel; Complete Time: 08:29 kdr 10/18 07:19 Order name: CBC with Diff; Complete Time: 08: kdr 10/18 07:19 Order name: CT Head C Spine; Complete Time: 08:29 kdr 10/18 08:21 Order name: ETOH Level jl7 10/18 07:19 Order name: Labs collected and sent; Complete Time: 07:36 kdr Administered Medications: 08:40 Drug: Zofran (Ondansetron) 4 mg Route: IVP; Site: left antecubital; bp 09:00 Follow up: Response: No adverse reaction bp Disposition Summary: 10/18/21 08:13 Transfer Ordered Transfer Location: [facility] kdr Reason: Higher level of care kdr Condition: Serious kdr Problem: new kdr Symptoms: are unchanged kdr Accepting Physician: Loi(10/18/21 09:12) bp Diagnosis - Small left frontal subdural, nondisplaced right occipital fracture kdr Forms: - Medication Reconciliation Form kdr - SBAR form kdr Signatures: Dispatcher [employer] EDOsmany Hu MD MD kdr Jose Rafael Chavez RN RN [id number] Bryce Isaacs RN RN Aurora Katz RN RN kd3 Corrections: (The following items were deleted from the chart) 09:12 08:13 [place] kdr bp
--- NOTE | 2021-10-18 08:15 | RAD REPORT ---
EXAM DESCRIPTION: CT - Head C Spine Mpr Wo Con - 10/18/2021 7:54 am CLINICAL HISTORY: Head and neck injury status post fall. Head and neck pain. Confusion COMPARISON: None. TECHNIQUE: Computed axial tomography of the head and cervical spine was obtained. Sagittal and coronal reconstruction was performed. All CT scans are performed using dose optimization technique as appropriate and may include automated exposure control or mA/KV adjustment according to patient size. FINDINGS: Small subdural hematoma along the left frontal convexity. The ventricles are normal in caliber. A nondisplaced fracture right occipital bone. Adjacent scalp la ceration. Right maxillary sinus is almost completely opacified. This could indicate sinusitis or blood. A cervical fracture is not visualized. No dislocation is noted. IMPRESSION: Small subdural hematoma along the left frontal convexity. No shift of midline structures . Nondisplaced fracture right occipital bone A cervical fracture is not visualized. Dr. Cherry of the emergency room notified at 8:08 a.m. October 18, 2021
[2021-10-18 08:18] LABS: Potassium 3.5 mmol/L (3.5-5.1)
[2021-10-18] MEDS ORDERED: ONDANSETRON 4 MG/2 ML VIAL ONE (08:54)
[2021-10-18 09:17] VITALS: TEMP 97.9
[2021-10-18 09:19] VITALS: BP 131/86; O2SAT 97
== END 2021-10-18 09:12 | disposition short-term general hospital (02) ==
LOC: ER 06:59
DX: S02.11HA Other fracture of occiput, left side, initial encounter for closed fracture (principal); I10 Essential (primary) hypertension; F41.9 Anxiety disorder, unspecified; F20.9 Schizophrenia, unspecified; Z88.3 Allergy status to other anti-infective agents
CPT/HCPCS: 85025; 80048; 36415; 80320; 70450; 72125; 96374; 99285; J2405